=== PATIENT | male | born 1965 | race Caucasian/White ===

== ENCOUNTER 2019-01-02 23:45 | Emergency (ER) | payer BC ==
[2019-01-03] MEDS ORDERED: NORMAL SALINE 1000 ML 1,000 ML IV ONE (00:12)
--- NOTE | 2019-01-03 00:14 | ER Document Report ---
ED General - General Chief Complaint: Dizziness Stated Complaint: DIZZY Time Seen by Provider: 01/03/19 00:03 Notes: Patient is a pleasant 53-year-old male who presents with complaints of an episode where he became diaphoretic, short of breath, and had a headache. He did not pass out. He said he felt weak and unwell. Patient was therefore brought here by EMS. He received some IV fluids in the ambulance and is now starting to feel improved but still has a slight headache. He never had chest pain. Said he felt as if his heart rate was actually low. He had some nausea. No abdominal pain. No recent trauma or injuries. 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 It was a charcoal grill. It was not a gas grill. Patient had been outside all day. They are down visiting his son from [place]. Patient had friends over and therefore the dad was outside grilling in the heat, managing the grill, and also drinking alcohol throughout the day. He has a history of hypertension. No history of coronary disease or [place]. He is never had similar episode in the past. TRAVEL OUTSIDE OF THE [place] IN LAST 30 DAYS: No - Related Data Allergies/Adverse Reactions: No Known Allergies Allergy (Unverified 01/03/19 00:06) Past Medical History - Social History Smoking Status: Never Smoker Chew tobacco use (# tins/day): No Frequency of alcohol use: Occasional Drug Abuse: None Family History: Reviewed & Not Pertinent Patient has suicidal ideation: No Patient has homicidal ideation: No Renal/ Medical History: Denies: Hx Peritoneal Dialysis Review of Systems - Review of Systems Notes: My Normal Review Basic REVIEW OF SYSTEMS: CONSTITUTIONAL : Denies fever, chills, or sweats. Denies recent illness. EENT: Denies eye, ear, throat, or mouth pain or symptoms. Denies nasal or sinus congestion. CARDIOVASCULAR: Denies chest pain. RESPIRATORY: [place] short of breath GASTROINTESTINAL: Denies abdominal pain. Denies nausea, vomiting, or diarrhea. MUSCULOSKELETAL: Denies neck or back pain or joint pain or swelling. SKIN: Denies rash or skin lesions. NEUROLOGICAL: Denies altered mental status or loss of consciousness. Has a headache. Denies weakness or paralysis or loss of use of either side. Denies problems with gait or speech. Denies sensory or motor loss. PSYCHIATRIC: Denies anxiety or stress or depression. ALL OTHER SYSTEMS REVIEWED AND NEGATIVE. Physical Exam - Vital signs Vitals: Resp Pulse Ox 14 98 01/02/19 23:49 01/02/19 23:49 - Notes Notes: General Appearance: Well nourished, alert, cooperative, no acute distress, no obvious discomfort. Well-appearing. Vitals: reviewed, See vital signs table. Head: no swelling or tenderness to the head Eyes: PERRL, EOMI, Conjuctiva clear Mouth: No decreasd moisture Lungs: No wheezing, No rales, No rhonci, No accessory muscle use, good air exchange bilaterally. Heart: Normal rate, Regular rythm, No murmur, no rub Abdomen: Normal BS, soft, No rigidity, No abdominal tenderness, No guarding, no rebound, no abdominal masses, no organomegaly Extremities: strength 5/5 in all extremities, good pulses in all extremities, no swelling or tenderness in the extremities, no edema. Skin: warm, dry, appropriate color, no rash Neuro: speech clear, oriented x 3, normal affect, responds appropriately to questions. Renal nerves II through XII are intact. Distal sensation intact. Good strength in all 4 extremities. Normal coordination of movements. No focal neurologic deficits on exam. Course - Re-evaluation Re-evalutation: 01/03/19 05:13 I suspect that the patient's episode may been related to being out in the heat for a long period time and working over the hot grill as well as drinking alcohol and a lot of water throughout the day. He did not have any chest pain. I still felt the necessity to go forward with doing cardiac work-up being that he was diaphoretic and short of breath during the episode. I therefore obtain a troponin and EKG. This was negative. I then ordered a delta troponin III hours after the initial one. This was also negative. Patient has remained symptom- free since arriving to the ED. He looks very well. His vital signs are stable. CT scan of the head was obtained because patient did have a sudden onset headache when the symptoms occurred. CT scan was obtained within 3 hours after the onset of headache and it was negative and therefore subarachnoid hemorrhage is highly unlikely. Patient's headache is since resolved. He has no focal neurologic deficits on exam. No symptoms that would correlate with stroke. At this time I feel patient safe to be discharged home. I am informed him and his that they should still have a low threshold to return to the ER immediately if he has recurrence of any of his symptoms, chest pain, difficulty breathing, passing out, or if he appears unwell in any way. Patient and agree with plan and patient will be discharged home. Dictation of this chart was performed using voice recognition software; therefore, there may be some unintended grammatical errors. - Vital Signs Vital signs: Temp Pulse Resp BP Pulse Ox 97.8 F 19 136/86 H 99 01/02/19 23:50 01/02/19 23:50 01/03/19 02:01 01/03/19 02:01 - Laboratory Result Diagrams: 01/03/19 00:45 01/03/19 00:45 Laboratory results interpreted by me: 01/03/19 00:45 Chloride 110 H - EKG Interpretation by Me Additional EKG results interpreted by me: 01/03/19 00:14 EKG is reviewed and interpreted by me. EKG shows sinus rhythm with a rate of [address] segment elevation or depression. Patient has a slight T wave in version in lead III but no T wave inversions in the other leads. PA interval, QRS duration, QTc intervals are within normal range. No old EKG available for comparison. Discharge - Discharge Clinical Impression: Dyspnea Qualifiers: Dyspnea type: unspecified Qualified Code(s): R06.00 - Dyspnea, unspecified Condition: Good Disposition: HOME, SELF-CARE Additional Instructions: The exact cause of your symptoms today is not 100% clear. I suspect it probably is related to being out in the heat for long period time in combination with drinking alcohol and being around the hot grill. Currently your work-up looking at your heart does not show any concerning findings. CT scan of your head did not show any concerning findings. You look well and on exam your vital signs are stable. I feel you are safe to be discharged home. Please have a low threshold to return to the ER immediately if you have any chest pain, recurrent headache, any difficulty breathing, or if you feel unwell in any way. Please stay out of the heat for the next 24 hours and drink lots of non-caffeinated liquids.
--- NOTE | 2019-01-03 00:45 | RADIOLOGY REPORT (SQ) ---
EXAM DESCRIPTION: XR CHEST 1 VIEW COMPLETED DATE/TME: 01/03/2019 00:13 CLINICAL HISTORY: 53 years, Male, dyspnea COMPARISON: None. NUMBER OF VIEWS: 1 TECHNIQUE: Portable chest LIMITATIONS: None. FINDINGS: Heart size at the upper limits of normal. Lungs are clear. No pneumothorax IMPRESSION: No acute cardiopulmonary process copyright 2010 [employer]- All Rights Reserved
--- NOTE | 2019-01-03 00:47 | RADIOLOGY REPORT (SQ) ---
EXAM DESCRIPTION: CT HEAD WITHOUT IV CONTRAST COMPLETED DATE/TME: 01/03/2019 00:12 CLINICAL HISTORY: 53 years, Male, headache COMPARISON: None. TECHNIQUE: 204 Images stored on PACS. All CT scanners at this facility use dose modulation, iterative reconstruction, and/or weight based dosing when appropriate to reduce radiation dose to as low as reasonably achievable (ALARA). [facility]: Dose Right [facility]: CareDose [facility]: Dose Right [facility]: Teradose 4D [facility]: [place] LIMITATIONS: None. FINDINGS: The globes are intact. The paranasal sinuses and mastoid air cells are unremarkable. No displaced or depressed skull fracture. No intra or extra-axial hemorrhage. CT is limited for evaluation of acute infarct. No CT evidence for large or territorial acute infarct. No mass. No midline shift IMPRESSION: Negative exam TECHNICAL DOCUMENTATION: Quality ID # [id number]: Final reports with documentation of one or more dose reduction techniques (e.g., Automated exposure control, adjustment of the mA and/or kV according to patient size, use of iterative reconstruction technique) copyright 2011 [employer]- All Rights Reserved
[2019-01-03 00:58] LABS: ABSOLUTE BASOPHILS # (AUTO) 0.1 10^3/uL (0.0-0.2); ABSOLUTE EOSINOPHILS # (AUTO) 0.1 10^3/uL (0.0-0.6); ABSOLUTE LYMPHOCYTES (AUTO) 1.3 10^3/uL (0.5-4.7); ABSOLUTE MONOCYTES (AUTO) 0.6 10^3/uL (0.1-1.4); ABSOLUTE NEUT (AUTO) 4.5 10^3/uL (1.7-8.2); BASOPHILS % (AUTO) 1.2 % (0-2); HEMATOCRIT 40.9 % (37.9-51.0); HEMOGLOBIN 14.3 g/dL (13.5-17.0); LYMPHOCYTES % (AUTO) 19.7 % (13-45); MEAN CORPUSCULAR HGB CONC 34.9 g/dL (32.0-36.0); MEAN CORPUSCULAR VOLUME 86 fl (80-97); MONOCYTES % (AUTO) 8.8 % (3-13); PLATELET COUNT 179 10^3/uL (150-450); RED BLOOD COUNT 4.76 10^6/uL (4.35-5.55); RED CELL DISTRIBUTION WIDTH 13.4 % (11.5-14.0); SEGMENTED NEUTROPHILS % (AUTO) 68.3 % (42-78); TOTAL CELLS COUNTED % (AUTO) 100 %; WHITE BLOOD COUNT 6.6 10^3/uL (4.0-10.5)
[2019-01-03 01:25] LABS: ALANINE AMINOTRANSFERASE 55 U/L (21-72); ALBUMIN 4.1 g/dL (3.5-5.0); ALCOHOL 12 mg/dL (NONE DETECTED); ALKALINE PHOSPHATASE 65 U/L (38-126); ANION GAP 11 (5-19); ASPARTATE AMINO TRANSFERASE 31 U/L (17-59); BILIRUBIN,DIRECT 0.3 mg/dL (0.0-0.4); BILIRUBIN,TOTAL 0.4 mg/dL (0.2-1.3); BLOOD UREA NITROGEN 14 mg/dL (7-20); CALCIUM 9.3 mg/dL (8.4-10.2); CARBON DIOXIDE 22 mmol/L (22-30); CHLORIDE 110 mmol/L (98-107); GLUCOSE 94 mg/dL (75-110); POTASSIUM 3.8 mmol/L (3.6-5.0); TOTAL PROTEIN 6.7 g/dL (6.3-8.2)
[2019-01-03 05:24] VITALS: BP 128/86
--- NOTE | 2019-01-03 23:23 | EKG REPORT ---
SEVERITY:- NORMAL ECG - SINUS RHYTHM : Confirmed by: Juan Vasquez 03-Jan-2019 23:22:02
== END 2019-01-03 05:29 | disposition home or self-care (01) ==
LOC: ER 23:45
DX: R06.00 Dyspnea, unspecified (principal); R42 Dizziness and giddiness; R51 Headache; R53.1 Weakness; R11.0 Nausea
CPT/HCPCS: 36415; 70450; 71045; 80053; 80307; 84484; 85025; 93005; 93010; 96360; 96361; 99284; J7030